=== PATIENT | male | born 2000 | race African-American/Black ===

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

== ENCOUNTER 2018-10-17 12:08 | Emergency (ER) | payer OTHER ==
--- NOTE | 2018-10-17 12:29 | ED Physician Documentation ---
PD HPI CHEST PAIN - Stated complaint Stated Complaint: CHEST PX - Chief complaint Chief Complaint: Cardiac - History obtained from History obtained from: Patient - History of Present Illness Timing - onset: Last night, Yesterday Timing - onset during: Rest, Light activity Timing - duration: Days Timing - details: Gradual onset, Still present, Waxing and waning Quality: Tightness (last night), Aching (today), Pain Location: Substernal Radiation: No: Jaw, Neck, Back Improved by: Rest Worsened by: Inspiration, Movement, Palpation Associated symptoms: No: Shortness of air, Nausea, Feeling faint / dizzy, Palpitations Similar symptoms before: No diagnosis (He had similar symptoms that lasted for a few days about a month or 2 ago. [facility] who thought it was some inflammation. He has not had any recurrent symptoms until yesterday. He denied any injury and has not had any recent cough or cold symptoms. He has not had any swelling in his legs. He denies any travel. He has been working out less because of her right rotator cuff injury but has been trying to do abdominal exercises and some leg exercises.) Recently seen: Not recently seen Review of Systems Constitutional: denies: Fever, Chills, Myalgias Nose: denies: Rhinorrhea / runny nose, Congestion Throat: denies: Sore throat Cardiac: reports: Chest pain / pressure. denies: Palpitations, Pedal edema, Calf pain Respiratory: denies: Dyspnea, Cough, Wheezing GI: denies: Abdominal Pain, Nausea, Vomiting Skin: denies: Rash, Lesions PD PAST MEDICAL HISTORY - Past Medical History Past Medical History: No Cardiovascular: None Respiratory: None Neuro: None Endocrine/Autoimmune: None GI: None : None HEENT: None Psych: None Musculoskeletal: None Derm: None - Past Surgical History Past Surgical History: No - Present Medications Home Medications: Ambulatory Orders Medication Instructions Recorded Confirmed Naproxen 500 mg PO BID #20 tablet 10/17/18 Tramadol HCl 50 mg PO Q6H PRN #15 tablet 10/17/18 dexAMETHasone [Decadron] 4 mg PO DAILY #5 tablet 10/17/18 - Allergies Allergies/Adverse Reactions: Allergies Allergy/AdvReac Type Severity Reaction Status Date / Time No Known Drug Allergies Allergy Verified 12/11/17 19:36 - Social History Does the pt smoke?: No Smoking Status: Never smoker Does the pt drink ETOH?: No Does the pt have substance abuse?: No - Immunizations Immunizations are current?: Yes PD ED PE NORMAL - Vitals Vital signs reviewed: Yes - General General: Alert and oriented X 3, No acute distress, Well developed/nourished - HEENT HEENT: Moist mucous membranes, Pharynx benign - Neck Neck: Supple, no meningeal sign, No adenopathy - Cardiac Cardiac: RRR, No murmur - Respiratory Respiratory: Clear bilaterally, Other (Localized chest wall tenderness in the left parasternal area without any crepitance rash or sores. There is no redness or warmth to the area.) - Abdomen Abdomen: Soft, Non tender - Back Back: No CVA TTP - Derm Derm: Normal color, Warm and dry - Extremities Extremities: No deformity, No tenderness to palpate, Normal ROM s pain, No edema, No calf tenderness / cord - Neuro Neuro: Alert and oriented X 3, No motor deficit, Normal speech Eye Opening: Spontaneous Motor: Obeys Commands Verbal: Oriented GCS Score: 15 Results - Vitals Vitals: Vital Signs - 24 hr 10/17/18 12:13 Temperature 36.6 C Heart Rate 58 L Respiratory 16 Rate Blood Pressure 138/64 H O2 Saturation 99 Oxygen O2 Source Room air - EKG (time done) 12:12 Rate: Rate (enter#) (58) Rhythm: NSR [place]: Normal Intervals: Normal [place] QRS: Normal Ischemia: Normal ST segments, ST elevation c/w repol. No: ST elevation c/w ischemia, ST depression, T wave inversion - Rads (name of study) chest xray Radiology: Prelim report reviewed, EMP read contemporaneously (normal), See rad report PD MEDICAL DECISION MAKING - ED course Complexity details: reviewed results (Chest x-ray is normal. His EKG shows early repolarization consistent with his age and body habitus), considered differential (Sounds likely to be costochondral or musculoskeletal. He does not have any cough or cold symptoms. And does have positional and tactile components. We will do EKG and chest x-ray to ensure no other obvious process.), d/w patient Departure - Departure Disposition: 01 Home, Self Care Clinical Impression: Acute chest wall pain Condition: Stable Record reviewed to determine appropriate education?: Yes Instructions: ED Chest Pain Costochondritis Follow-Up: [facility] [Provider Group] Prescriptions: dexAMETHasone [Decadron] 4 mg PO DAILY #5 tablet Naproxen 500 mg PO BID #20 tablet Tramadol HCl 50 mg PO Q6H PRN #15 tablet PRN Reason: Pain Comments: Your EKG and chest x-ray are normal for you. This seems musculoskeletal in its character and location. I presume it some inflammation of the cartilage around the sternum. Use anti-inflammatories of naproxen and Decadron as directed. To that add Tylenol or tramadol if needed for pains. Avoid heavy lifting, push pole, too vigorous activity for the next several days to week until this is better. Follow-up with your primary care if not improved over the next several days.
--- NOTE | 2018-10-17 13:06 | XRAY Report ---
Reason: dyspnea/ cough Procedure Date: 10/17/2018 Accession Number: [id number] / [id number] Procedure: XR - Chest 2 View X-Ray CPT Code: 34456 FULL RESULT: EXAM: CHEST RADIOGRAPHY EXAM DATE: 10/17/2018 12:51 PM. CLINICAL HISTORY: Dyspnea/ cough. COMPARISON: None. TECHNIQUE: 2 views. FINDINGS: Lungs/Pleura: No focal opacities evident. No pleural effusion. No pneumothorax. Normal volumes. Mediastinum: Heart and mediastinal contours are unremarkable. Other: None. IMPRESSION: Normal 2-view chest radiography. RADIA
[2018-10-17] MEDS ORDERED: DEXAMETHASONE 10 MG/ML VIAL PO STA (13:10)
[2018-10-17] MEDS ORDERED: CHERRY SYRUP 10 ML UDC PO ONE (13:10)
[2018-10-17] MEDS ORDERED: IBUPROFEN 600 MG TABLET PO STA (13:10)
[2018-10-17] MEDS ORDERED: ACETAMINOPHEN 325 MG TABLET PO STA (13:10)
[2018-10-17 13:47] VITALS: BP 120/66
== END 2018-10-17 13:45 | disposition home or self-care (01) ==
LOC: ED 12:08
DX: R07.89 Other chest pain (principal)
CPT/HCPCS: 71046; 93005; 99283; A9270

== ENCOUNTER 2019-06-10 00:10 | Outpatient (CLI) | payer OTHER | END 2019-06-10 00:11 | disposition critical access hospital (66) | LOC: EMS 00:10 | PROVIDERS: ATTEND Surgery | DX: R45.851 Suicidal ideations (principal) | CPT/HCPCS: A0425; A0429 ==

== ENCOUNTER 2019-06-10 00:21 | Emergency (ER) | payer OTHER ==
[2019-06-10 00:43] LABS: MUDS CUTOFF CONCENTRATIONS CUTOFF CONC BELOW:
[2019-06-10 00:45] LABS: BASOPHILS % (AUTO) 0.4 %; EOSINOPHILS # (AUTO) 0.1 10^3/uL (0.0-0.7); EOSINOPHILS % (AUTO) 1.6 %; HGB - HEMOGLOBIN 15.6 g/dL (14.0-18.0); LYMPHOCYTES # (AUTO) 2.6 10^3/uL (1.5-3.5); LYMPHOCYTES % (AUTO) 34.7 %; MEAN CORPUSCULAR HEMOGLOBIN 26.9 pg (27.0-31.0); MEAN CORPUSCULAR HGB CONC 31.9 g/dL (32.0-36.0); MEAN CORPUSCULAR VOLUME 84.3 fL (80.0-94.0); MEAN PLATELET VOLUME 8.8 fL (7.4-11.4); MONOCYTES # (AUTO) 0.7 10^3/uL (0.0-1.0); MONOCYTES % (AUTO) 9.1 %; NEUTROPHILS # (AUTO) 4.1 10^3/uL (1.5-6.6); NEUTROPHILS % (AUTO) 53.8 %; PLT - PLATELET COUNT 275 10^3/uL (130-450); RED CELL DISTRIBUTION WIDTH 13.5 % (12.0-15.0); WHITE BLOOD COUNT 7.6 x10^3/uL (4.8-10.8)
[2019-06-10 00:46] LABS: BILIRUBIN,URINE NEGATIVE (NEGATIVE); GLUCOSE, URINE (UA) NEGATIVE (NEGATIVE); KETONES,URINE (UA) NEGATIVE (NEGATIVE); LEUKOCYTE ESTERASE, URINE NEGATIVE (NEGATIVE); NITRITE,URINE NEGATIVE (NEGATIVE); OCCULT BLOOD,URINE NEGATIVE (NEGATIVE); PROTEIN,URINE NEGATIVE (NEGATIVE); UROBILINOGEN,URINE 0.2 (NORMAL) E.U./dL (NORMAL)
[2019-06-10 00:47] LABS: CLARITY,URINE CLEAR (CLEAR)
[2019-06-10 00:59] LABS: AMPHETAMINE SCREEN,URINE NEGATIVE (NEGATIVE); BENZODIAZEPINES SCREEN, URINE NEGATIVE (NEGATIVE); COCAINE SCREEN URINE NEGATIVE (NEGATIVE); METHADONE SCREEN, URINE NEGATIVE (NEGATIVE); METHAMPHETAMINES SCREEN, URINE NEGATIVE (NEGATIVE); OPIATE SCREEN, URINE NEGATIVE (NEGATIVE); OXYCODONE SCREEN, URINE NEGATIVE (NEGATIVE); PROPOXYPHENE SCREEN, URINE NEGATIVE (NEGATIVE); TRICYCLIC ANTIDEPRESSANT,URINE NEGATIVE (NEGATIVE)
[2019-06-10 01:01] LABS: ACETAMINOPHEN < 10 ug/mL (10-30); ALBUMIN 4.4 g/dL (3.2-5.5); ALBUMIN/GLOBULIN RATIO 1.2 (1.0-2.2); ALKALINE PHOSPHATASE 59 IU/L (42-121); ALT ALANINE AMINOTRANSFERASE 34 IU/L (10-60); AST ASPARTATE AMINOTRANSFERASE 70 IU/L (10-42); BILIRUBIN,TOTAL 0.3 mg/dL (0.2-1.0); BUN - BLOOD UREA NITROGEN 16 mg/dL (6-20); CALCIUM 9.7 mg/dL (8.5-10.3); CARBON DIOXIDE - CO2 29 mmol/L (21-32); CHLORIDE 102 mmol/L (101-111); CREATININE 0.9 mg/dL (0.6-1.2); GFR - MDRD 129 (>89); GLUCOSE 67 mg/dL (70-100); LIPASE 30 U/L (22-51); SALICYLATE < 6.0 mg/dL; SODIUM 141 mmol/L (135-145)
--- NOTE | 2019-06-10 01:46 | ED Physician Documentation ---
History of Present Illness - Stated complaint Stated Complaint: SI - Chief complaint Chief Complaint: MHE - History obtained from History obtained from: Patient, EMS - History of Present Illness Timing: Prior to arrival - Additonal information Additional information: 19-year-old male who was brought in by EMS because of suicidal ideation. History is was limited as patient was not very forthcoming. Per EMS, patient told someone that he has suicidal thoughts. Tonight, patient also expressed suicidal thoughts and made a statement about jumping off a bridge to kill himself.His called 911 and patient was brought in for further evaluation. Patient admitted to having depression for ears.He answers my question mostly by nodding his head and shaking his head. He admitted to feeling depressed but denies any provoking factors. He denied any relationship problems with his . Her is currently not present during my interview. He denies any phys ical discomfort. He denies any recent ingestion. He denies any recent alcohol use. Review of Systems Constitutional: denies: Fever, Chills Ears: denies: Loss of hearing, Ear pain Nose: denies: Rhinorrhea / runny nose Throat: denies: Dental pain / toothache Cardiac: denies: Chest pain / pressure Respiratory: denies: Dyspnea, Cough GI: denies: Abdominal Pain : denies: Dysuria Skin: denies: Rash Musculoskeletal: denies: Neck pain Neurologic: denies: Generalized weakness Psychiatric: reports: Depressed, Suicidal. denies: Homicidal PD PAST MEDICAL HISTORY - Past Medical History Cardiovascular: None Respiratory: None Neuro: None Endocrine/Autoimmune: None GI: None : None HEENT: None Psych: None Musculoskeletal: None Derm: None - Past Surgical History Past Surgical History: No - Present Medications Home Medications: Ambulatory Orders Medication Instructions Recorded Confirmed Naproxen 500 mg PO BID #20 tablet 10/17/18 Tramadol HCl 50 mg PO Q6H PRN #15 tablet 10/17/18 dexAMETHasone [Decadron] 4 mg PO DAILY #5 tablet 10/17/18 - Allergies Allergies/Adverse Reactions: Allergies Allergy/AdvReac Type Severity Reaction Status Date / Time No Known Drug Allergies Allergy Verified 12/11/17 19:36 - Social History Does the pt smoke?: No Smoking Status: Never smoker Does the pt drink ETOH?: No Does the pt have substance abuse?: No - Immunizations Immunizations are current?: Yes PD ED PE NORMAL - General General: No acute distress, Well developed/nourished, Other (flat affect) - HEENT HEENT: Atraumatic, EOMI - Neck Neck: Supple, no meningeal sign - Cardiac Cardiac: RRR - Respiratory Respiratory: No respiratory distress - Abdomen Abdomen: Normal bowel sounds - Derm Derm: Normal color - Extremities Extremities: No deformity, Normal ROM s pain - Neuro Neuro: Alert and oriented X 3, No motor deficit, Normal speech Eye Opening: Spontaneous Motor: Obeys Commands Verbal: Oriented GCS Score: 15 - Psych Psych: Other (flat affect. avoided eye contact) Results - Vitals Vitals: Vital Signs - 24 hr 06/10/19 06/10/19 00:23 08:32 Temperature 36.8 C 36.7 C Heart Rate 81 65 Respiratory 14 18 Rate Blood Pressure 151/90 H 108/58 L O2 Saturation 100 100 Oxygen O2 Source Room air - Labs Labs: Laboratory Tests 06/10/19 06/10/19 06/10/19 00:36 00:40 00:40 WBC 7.6 RBC 5.80 Hgb 15.6 Hct 48.9 MCV 84.3 MCH 26.9 L MCHC 31.9 L RDW 13.5 Plt Count 275 MPV 8.8 Neut # (Auto) 4.1 Lymph # (Auto) 2.6 Walsh # (Auto) 0.7 Eos # (Auto) 0.1 Baso # (Auto) 0.0 Absolute Nucleated RBC 0.00 Nucleated RBC % 0.0 Sodium 141 Potassium 3.6 Chloride 102 Carbon Dioxide 29 Anion Gap 10.0 BUN 16 Creatinine 0.9 Estimated GFR (MDRD) 129 Glucose 67 L Calcium 9.7 Total Bilirubin 0.3 AST 70 H ALT 34 Alkaline Phosphatase 59 Total Protein 8.0 Albumin 4.4 Globulin 3.6 Albumin/Globulin Ratio 1.2 Lipase 30 TSH Urine Color YELLOW Urine Clarity CLEAR Urine pH 6.0 Ur Specific [place] 1.020 Urine Protein NEGATIVE Urine Glucose (UA) NEGATIVE Urine Ketones NEGATIVE Urine Occult Blood NEGATIVE Urine Nitrite NEGATIVE Urine Bilirubin NEGATIVE Urine Urobilinogen 0.2 (NORMAL) Ur Leukocyte Esterase NEGATIVE Ur Microscopic Review NOT INDICATED Urine Culture Comments NOT INDICATED Salicylates < 6.0 Urine Opiates Screen NEGATIVE Ur Oxycodone Screen NEGATIVE Urine Methadone Screen NEGATIVE Ur Propoxyphene Screen NEGATIVE Acetaminophen < 10 L Ur Barbiturates Screen NEGATIVE Ur Tricyclics Screen NEGATIVE Ur Phencyclidine Scrn NEGATIVE Ur Amphetamine Screen NEGATIVE U Methamphetamines Scrn NEGATIVE U Benzodiazepines Scrn NEGATIVE Urine Cocaine Screen NEGATIVE U Cannabinoids Screen NEGATIVE Ethyl Alcohol < 5.0 06/10/19 00:40 WBC RBC Hgb Hct MCV MCH MCHC RDW Plt Count MPV Neut # (Auto) Lymph # (Auto) Walsh # (Auto) Eos # (Auto) Baso # (Auto) Absolute Nucleated RBC Nucleated RBC % Sodium Potassium Chloride Carbon Dioxide Anion Gap BUN Creatinine Estimated GFR (MDRD) Glucose Calcium Total Bilirubin AST ALT Alkaline Phosphatase Total Protein Albumin Globulin Albumin/Globulin Ratio Lipase TSH 8.49 H Urine Color Urine Clarity Urine pH Ur Specific [place] Urine Protein Urine Glucose (UA) Urine Ketones Urine Occult Blood Urine Nitrite Urine Bilirubin Urine Urobilinogen Ur Leukocyte Esterase Ur Microscopic Review Urine Culture Comments Salicylates Urine Opiates Screen Ur Oxycodone Screen Urine Methadone Screen Ur Propoxyphene Screen Acetaminophen Ur Barbiturates Screen Ur Tricyclics Screen Ur Phencyclidine Scrn Ur Amphetamine Screen U Methamphetamines Scrn U Benzodiazepines Scrn Urine Cocaine Screen U Cannabinoids Screen Ethyl Alcohol PD MEDICAL DECISION MAKING - ED course Complexity details: re-evaluated patient, d/w partner management consultant ED course: 19-year-old male, who is otherwise healthy, presented to the emergency department because of suicidal ideation. History was limited as patient did not want to speak. Patient denies any physical complaints. He denies any headache, chest pain, shortness of breath, abdominal pain, nausea, vomiting or back pain.Case was discussed with Dr. Pretty, Telepsychiatrist. She evaluated the patient and was able to obtain additional insight and information.After her assessment, she recommended the patient to be admitted to inpatient psychiatric hospital for further evaluation and management. At this time, patient is in agreement. He remained cooperative and was not in any distress. 0430 We contacted [facility]. Their inpatient psychiatric unit is full. Case was signed out to Dr. Yu Law, ED attending physician. She has resumed care. Social work will evaluate the patient this morning. Currently, awaiting for final disposition.
--- NOTE | 2019-06-10 03:13 | TELEPSYCH PHYS NOTE ---
Telepsych Note - CHIEF COMPLAINT/HX OF PRESENT ILLNESS Cheif Complaint and History of Present Illness: Name: Ishan Conway : [birth year]. 19M Date: 06/10/19 Location of patient: [facility] ED Time: 5:50am Location of doctor: [facility] This evaluation was conducted via telepsychiatry with the assistance of onsite staff Chief Complaint: SI History of Present Illness: Pt seen by televideo with help from the onsite staff. Pt is a 19 yo male who reports no previous psychiatric history. Reports he recently saw a therapist through the [facility]. Pt presents to the ED BIB EMS/police who was called by his after he expressed SI and made threats to jump off a bridge. He states that after making the threat, he left his home and started walking towards the bridge. Pt notes an approximate 1 year period of worsening depressive sxs. He reports a primary trigger as his [employer] duty. States he hates it and wants to leave. States he is currently on leave from May 22 and he is due back tomorrow on the . Also notes concerns about his parents. States his mother has financial problems and his father is an alcoholic. On ROS, pt denies AVHs, delusions nor HI. Noted SI earlier. He does not readily respond to questions about current SI. He presents as a danger to himself and requires acute inpt psychiatric admission for safety, stabilization and treatment. Collateral: Chart review and hospital staff. , Anaya was not available at the time of the evaluation. SI: previous ideation, no attempts. Trauma history: none reported. Access to weapons: none reported Legal: none reported Psychiatric History/Treatment History: recently started outpt counseling. Medical History: none acute reported Medications & Freq: none currently Allergies: NKDA Substance Use: Denies UDS/BAL - Sleep: decreased Family Psych History/History of suicide: father with ETOH abuse. No known family hx of suicidality. Supports: family MSE: Appearance and attire: hospital attire Attitude and behavior: guarded Affect and mood: depressed / constricted Association and thought processes: limited Thought content: Denies delusions. Denies HI. Did not respond to current SI Perception: Denies AVHs Sensorium, memory, and orientation: AxOx3 Intellectual functioning: average Insight and judgment: impaired. - SI/HI/SELF HARM SI/HI/SELF HARM (CURRENT OR HISTORY OF):: SI - PSYCHIATRIC HX/TREATMENT HX Psychiatric: None - MEDICAL HX Does the pt have a hx of MRSA?: No Neurological History: None Eyes, Ears, Nose, Throat: None Cardiovascular: None Respiratory: None Skin: None Endocrine/Autoimmune: None Gastrointestinal: None Urinary: None Musculoskeletal: None Blood Disorders: None - ALLERGIES Allergies (as last confirmed): Allergies Allergy/AdvReac Type Severity Reaction Status Date / Time No Known Drug Allergies Allergy Verified 12/11/17 19:36 - TREATMENT/PHARMACOLOGICAL RECOMMENDATION Treatment - Pharmacological - Therapy Recommendations: Diagnosis: Unspecified Depressive Disorder. Assessment/Risk Assessment: Pt report SI earlier. He does not readily respond to questions about current SI. He presents as a danger to himself and requires acute inpt psychiatric admission for safety, stabilization and Recommendations: Pt requires acute inpt psychiatric admission For safety, stabilization and treatment Pt is voluntary for inpt treatment. Should the pt no longer agree to voluntary placement he cannot leave and would require involuntary placement. Can offer to start Zoloft 25mg po DailyDiagnosis: Unspecified Depressive Disorder. Assessment/Risk Assessment: Pt report SI earlier. He does not readily respond to questions about current SI. He presents as a danger to himself and requires acute inpt psychiatric admission for safety, stabilization and Recommendations: Pt requires acute inpt psychiatric admission For safety, stabilization and treatment Pt is voluntary for inpt treatment. Should the pt no longer agree to voluntary placement he cannot leave and would require involuntary placement. Can offer to start Zoloft 25mg po Daily - TIME SPENT & PROVIDER LOCATION Telepsych consultation conducted via videoconferencing: Yes List names and roles of persons who participated in consult: mackenzie conway Telepsych Provider Location: [place] Time Telepsych consult began: 05:50 Time Telepsych consult completed: 06:05
[2019-06-10 14:17] VITALS: BP 143/75
== END 2019-06-10 14:00 ==
LOC: EDUNIT# → ED 00:21
DX: R45.851 Suicidal ideations (principal); F32.9 Major depressive disorder, single episode, unspecified
CPT/HCPCS: 36415; 80053; 80306; 80307; 80320; 80329; 81001; 81003; 83690; 84443; 85025; 87086; 99283; 99285